=== PATIENT | male | born 1955 | race African-American/Black ===

== ENCOUNTER 2021-02-21 18:37 | Emergency (ER) | payer MEDICARE ==
[2021-02-21 20:37] LABS: CORONAVIRUS 2019 SARS-COV-2 NEGATIVE (NEGATIVE); INFLUENZA A NAA NEGATIVE (NEGATIVE)
[2021-02-21 20:44] LABS: BASOPHIL 0.4 % (0-2); EOSINOPHIL 3.2 % (0-7); HCT 42.5 % (42.0-52.0); HGB 14.2 g/dl (13.2-18.0); MCH 31.9 pg (25.0-31.0); MCHC 33.4 g/dL (32.0-36.0); MCV 95.5 fL (78.0-100.0); MONOCYTE 12.3 % (0-12); MPV 11.7 fL (6.0-9.5); NEUTROPHIL 45.7 % (41-80); NRBC 0; RBC 4.45 M/uL (4.70-6.00); RDW 12.4 % (11.5-14.0); WBC 7.7 K/uL (4.0-10.5)
[2021-02-21 20:59] LABS: PLT 106 K/uL (150-400)
[2021-02-21 21:21] LABS: BUN 13 mg/dL (7-18); BUN/CREAT RATIO (CALC) 20.6 RATIO; CHLORIDE 103 mmol/L (98-107); CO2 (BICARBONATE) 30 mmol/L (21-32); CREATININE 0.63 mg/dL (0.67-1.17); GLUCOSE 103 mg/dL (74-106); POTASSIUM 4.2 mmol/L (3.5-5.1)
[2021-02-21 21:22] LABS: ACETAMINOPHEN (TYLENOL) < 2.0 ug/mL (10.0-30.0)
[2021-02-21 21:57] LABS: BILIRUBIN NEGATIVE (NEGATIVE); BLOOD TRACE-INTACT Ery/uL (NEGATIVE); CLARITY CLEAR (CLEAR); COLOR YELLOW (YELLOW); GLUCOSE (U) NORMAL (NORMAL); LEUKOCYTES NEGATIVE Leu/uL (NEGATIVE); NITRITE NEGATIVE (NEGATIVE); PROTEIN NEGATIVE (NEGATIVE); UROBILINOGEN 0.2 mg/dL (0.2-1.0); pH 6.5 (5.0-9.0)
[2021-02-21 22:03] LABS: AMPHETAMINES NEGATIVE (NEGATIVE); BARBITURATES NEGATIVE (NEGATIVE); ECSTASY (MDMA) NEGATIVE (NEGATIVE); MARIJUANA (THC) NEGATIVE (NEGATIVE); METHADONE NEGATIVE (NEGATIVE); OPIATES NEGATIVE (NEGATIVE); OXYCODONE NEGATIVE (NEGATIVE)
[2021-02-21 22:06] LABS: SQUAMOUS EPITHELIAL CELLS RARE
== END 2021-02-22 15:49 | disposition home or self-care (01) ==
LOC: FER 18:37
PROVIDERS: Emergency Medicine Emergency Medical Services
DX: F03.91 Unspecified dementia, unspecified severity, with behavioral disturbance (principal); R45.1 Restlessness and agitation; Z86.73 Personal history of transient ischemic attack (TIA), and cerebral infarction without residual deficits; Z20.822 Contact with and (suspected) exposure to COVID-19
CPT/HCPCS: 36415; 70450; 71045; 80048; 80305; 81001; 84439; 84443; 84484; 85025; 93005; G0480; U0002